=== PATIENT | male | born 1995 | race African-American/Black ===

== ENCOUNTER 2019-02-25 09:09 | Emergency (ER) | payer OTHER ==
[2019-02-25 09:17] VITALS: BP 129/58; PULSE 87; TEMP 98.2; BMI 36.8
--- NOTE | 2019-02-25 09:52 | PDOC ---
History of Present Illness - General Chief Complaint: Back Pain Stated Complaint: LOWER BACK PAIN Time Seen by Provider: 02/25/19 09:37 History Source: Patient Exam Limitations: No Limitations Past History - Travel Traveled outside of the country in the last 30 days: No Close contact w/someone who was outside of country & ill: No - Past Medical History Allergies/Adverse Reactions: Allergies Allergy/AdvReac Type Severity Reaction Status Date / Time No Known Allergies Allergy Verified 02/25/19 09:16 Home Medications: Ambulatory Orders Cyclobenzaprine HCl [Flexeril -] 10 mg PO HS #10 tablet 02/25/19 Ibuprofen 600 mg PO Q6H #30 tablet 02/25/19 - Suicide/Smoking/Psychosocial Hx Smoking History: Never smoked Hx Alcohol Use: No Drug/Substance Use Hx: No Review of Systems - Review of Systems Able to Perform ROS?: Yes Comments:: 02/25/19 09:51 CONSTITUTIONAL: Absent: fever, chills, diaphoresis, generalized weakness, malaise, loss of appetite GASTROINTESTINAL: Absent: abdominal pain, abdominal distension, nausea, vomiting, diarrhea, constipation, melena, hematochezia GENITOURINARY: Absent: dysuria, frequency, urgency, hesitancy, hematuria, genital pain MUSCULOSKELETAL: Present: L low back pain/L flank pain Absent: arthralgia, joint swelling SKIN: Absent: rash, itching, pallor NEUROLOGIC: Absent: headache, focal weakness or paresthesias, dizziness, unsteady gait, seizure, mental status changes, bladder or bowel incontinence PSYCHIATRIC: Absent: anxiety, depression, suicidal or homicidal ideation, hallucinations. Is the patient limited Turkmen proficient: No *Physical Exam - Vital Signs Last Vital Signs Temp Pulse Resp BP Pulse Ox 98.2 F 87 16 129/58 L 99 02/25/19 09:15 02/25/19 09:15 02/25/19 09:15 02/25/19 09:15 02/25/19 09:15 - Physical Exam Comments: 02/25/19 09:51 GENERAL: Well developed, well nourished. Awake and alert. No acute distress. HEENT: Normocephalic, atraumatic. PERRLA, EOMI. No conjunctival pallor. Sclera are non- icteric. Moist mucous membranes. Oropharynx is clear. NECK: Supple. Full ROM. No JVD. Carotid pulses 2+ and symmetric, without bruits. No thyromegaly. No lymphadenopathy. MUSCULOSKELETAL Normal range of motion at all joints. No bony deformities or tenderness. No CVA tenderness. EXTREMITIES: No cyanosis. No clubbing. No edema. No calf tenderness. SKIN: Warm and dry. Normal capillary refill. No rashes. No jaundice. NEUROLOGICAL: Alert, awake, appropriate. Cranial nerves 2-12 intact. No deficits to light touch and temperature in face, upper extremities and lower extremities. No motor deficits in the in face, upper extremities and lower extremities. Normoreflexic in the upper and lower extremities. Normal speech. Toes are down- going bilaterally. Gait is normal without ataxia. Medical Decision Making - Medical Decision Making 02/25/19 09:52 the patient is a 23-year-old male with no past medical history, who presents to the ER today with left-sided back pain. The patient states that the pain comes and goes. He states when he has the pain he rates it at 2 out of 10. He has not taken any medication for the pain. Denies heavy lifting or trauma. Denies fevers, chills, nausea, vomiting, frequency, urgency, hematuria, saddle anesthesia, bladder/bowel incontinence, numbness and tingling to the extremities. A/P: Flank pain On exam patient reports left-sided flank pain, however it is not reproducible on exam. No CVA tenderness. Urine obtained to rule out stone. Urine shows no evidence of white blood cells, infection or blood. Possible muscle strain Patient given Motrin with relief of symptoms. We will refer to primary care. Patient also reports having knee pain and asks for an orthopedic follow-up. Discharge home I discussed the physical exam findings, ancillary test results and final diagnoses with the patient. I answered all of the patient's questions. The patient was satisfied with the care received and felt comfortable with the discharge plan and treatment plan. The Patient agrees to follow up with the primary care physician/specialist within 24-72 hours. Return precautions were given. *DC/Admit/Observation/Transfer Diagnosis at time of Disposition: Flank pain - Discharge Dispostion Disposition: HOME Condition at time of disposition: Stable Decision to Admit order: No - Prescriptions Prescriptions: Cyclobenzaprine HCl [Flexeril -] 10 mg PO HS #10 tablet Ibuprofen 600 mg PO Q6H #30 tablet - Referrals Referrals: Jame Stark MD [Staff Physician] - Herb Rowan MD [Staff Physician] - - Patient Instructions Printed Discharge Instructions: DI for Flank Pain Additional Instructions: You were evaluated for your side pain today. It is most likely a muscle spasm Your urine was normal today. It is unlikely that it is a kidney stone Take the ibuprofen 600mg every 6 hours as needed for pain Take the muscle relaxer at night before bed. Do not drink or drive after taking this medication as it may make you sleepy Follow up with orthopedics for your knee and primary care for the back pain. Referrals have been provided Return to the ER for any new or worsening symptoms - Post Discharge Activity
[2019-02-25 10:35] LABS: PH,URINE 7.5 (5.0-8.0); URINE APPEARANCE CLEAR; URINE BILIRUBIN NEGATIVE (NEGATIVE); URINE COLOR YELLOW; URINE GLUCOSE (UA) NEGATIVE (NEGATIVE); URINE KETONE NEGATIVE (NEGATIVE); URINE LEUK ESTERASE NEGATIVE (NEGATIVE); URINE NITRITE NEGATIVE (NEGATIVE); URINE PROTEIN NEGATIVE (NEGATIVE)
== END 2019-02-25 11:02 | disposition home or self-care (01) ==
LOC: JERFT 09:09
DX: M54.5 Low back pain (principal); R10.32 Left lower quadrant pain
CPT/HCPCS: 81003; 99281-25